=== PATIENT | male | born 1945 | race African-American/Black ===

== ENCOUNTER 2017-06-02 14:57 | Emergency (ER) | payer MEDICARE ==
[2017-06-02] MEDS ORDERED: OXYCODONE-ACETAMINOPHEN 5-325 MG TABLET PO ONE (15:42)
--- NOTE | 2017-06-02 16:26 | RADIOLOGY REPORT (SQ) ---
EXAM DESCRIPTION: KNEE LEFT 3 VIEWS COMPLETED DATE/TIME: 06/02/2017 4:15 pm REASON FOR STUDY: pain/swelling COMPARISON: None. NUMBER OF VIEWS: Three views. TECHNIQUE: AP, lateral, and sunrise patella radiographic images acquired of the left knee. LIMITATIONS: None. FINDINGS: MINERALIZATION: Normal. BONES: No acute fracture or dislocation. No worrisome bone lesions. No significant osteophytes. JOINT: No effusion. No chondrocalcinosis. OTHER: No other significant finding. IMPRESSION: NEGATIVE STUDY OF THE LEFT KNEE. NO EXPLANATION FOR PAIN. TECHNICAL DOCUMENTATION: JOB ID: [id number] [email or web address]- All Rights Reserved
--- NOTE | 2017-06-02 16:59 | ER Document Report ---
ED Extremity Problem, Lower - General Chief Complaint: Knee Pain Stated Complaint: LEFT KNEE PAIN Time Seen by Provider: 06/02/17 15:35 Mode of Arrival: Ambulatory Information source: Patient Notes: Patient reports 2 days of constant left knee pain. It is an aching sensation. It is moderate to severe. It is worse with movement and better with rest. Pain does radiate on the left leg. He denies any other joint pain or swelling. He does have a history of gout. TRAVEL OUTSIDE OF THE [place] IN LAST 30 DAYS: No - Related Data Allergies/Adverse Reactions: No Known Allergies Allergy (Unverified 06/02/17 15:03) Past Medical History - General Information source: Patient - Social History Smoking Status: Never Smoker Chew tobacco use (# tins/day): No Frequency of alcohol use: None Drug Abuse: None Family History: Reviewed & Not Pertinent Endocrine Medical History: Reports: Hx Diabetes Mellitus Type 2 Renal/ Medical History: Denies: Hx Peritoneal Dialysis Review of Systems - Review of Systems Constitutional: denies: Chills, Fever Cardiovascular: denies: Chest pain, Palpitations Respiratory: denies: Cough, Short of breath -: Yes All other systems reviewed and negative Physical Exam - Vital signs Vitals: Temp Pulse Resp BP Pulse Ox 98.8 F 75 18 144/93 H 96 06/02/17 15:02 06/02/17 15:02 06/02/17 15:02 06/02/17 15:02 06/02/17 15:02 Interpretation: Hypertensive - General General appearance: Appears well, Alert - HEENT Head: Normocephalic, Atraumatic Eyes: Normal Pupils: PERRL - Respiratory Respiratory status: No respiratory distress Chest status: Nontender Breath sounds: Normal Chest palpation: Normal - Cardiovascular Rhythm: Regular Heart sounds: Normal auscultation Murmur: No - Abdominal Inspection: Normal Distension: No distension Bowel sounds: Normal Tenderness: Nontender Organomegaly: No organomegaly - Back Back: Normal, Nontender - Extremities General upper extremity: Normal inspection, Nontender, Normal color, Normal ROM , Normal temperature General lower extremity: Tender, Edema, Other - Left knee is hot and has a moderate effusion. It is diffusely tender to palpation. Exam seems consistent with gout.. No: Normal weight bearing, Kaela's sign - Neurological Neuro grossly intact: Yes Cognition: Normal Orientation: AAOx4 [place] Coma Scale Eye Opening: Spontaneous [place] Coma Scale Verbal: Oriented [place] Coma Scale Motor: Obeys Commands [place] Coma Scale Total: 15 Speech: Normal Motor strength normal: LUE, RUE, LLE, RLE Sensory: Normal - Psychological Associated symptoms: Normal affect, Normal mood - Skin Skin Temperature: Warm Skin Moisture: Dry Skin Color: Normal Course - Vital Signs Vital signs: Temp Pulse Resp BP Pulse Ox 98.8 F 75 18 144/93 H 96 06/02/17 15:02 06/02/17 15:02 06/02/17 15:02 06/02/17 15:02 06/02/17 15:02 - Diagnostic Test Radiology reviewed: Image reviewed, Reports reviewed - No evidence of fracture dislocation on x-ray Discharge - Discharge Clinical Impression: Gout attack Clinical Impression: (Ruled Out): 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 Please call your family physician as soon as possible to arrange follow-up. Prescriptions: Hydrocodone/Acetaminophen [[place] 5-325 mg Tablet] 1 tab PO Q6 PRN #16 tablet PRN Reason: Prednisone [Deltasone 20 mg Tablet] 3 tab PO DAILY 5 Days #15 tablet Forms: Elevated Blood Pressure
[2017-06-02 17:22] VITALS: BP 139/70
== END 2017-06-02 17:22 | disposition home or self-care (01) ==
LOC: ER 14:57
DX: M10.9 Gout, unspecified (principal); M25.562 Pain in left knee; E11.9 Type 2 diabetes mellitus without complications
CPT/HCPCS: 99283; 73562; A9270